=== PATIENT | male | born 1945 | race Caucasian/White ===

== ENCOUNTER 2021-12-16 06:58 | Day surgery (SDC) | payer OTHER, MEDICARE ==
[2021-12-09 10:45] VITALS: BMI 36.9
[2021-12-16] MEDS ORDERED: LIDOCAINE HCL/PF 1% SDV 5ML VIAL ONE (07:06)
[2021-12-16] MEDS ORDERED: PHENYLEPHRINE/KETOROLAC 4 ML VIAL IO ONE (07:06)
[2021-12-16] MEDS ORDERED: EPINEPHrine/PF 1 MG/1 ML (1:1,000) AMPULE ONE (07:06)
[2021-12-16] MEDS ORDERED: NEO/POLYMYX B SULF/DEXAMETH OPHTHALMIC 5ML BOTTLE ONE (07:07)
[2021-12-16] MEDS ORDERED: TETRACAINE 0.5% OPHTH SOLN 2 ML BOTTLE ONE (07:07)
[2021-12-16] MEDS ORDERED: CARBACHOL 0.01% INTRA-OCULAR 1.5 ML VIAL ONE (07:07)
[2021-12-16] MEDS ORDERED: ACETYLCHOLINE 1:100 INTRA-OCUL 20 MG/2 ML KIT ONE (07:07)
[2021-12-16] MEDS ORDERED: BSS (NA/CA/MG/K) BALANCED SALT SOLUTION OPHTH SOLN 15 ML BOTTLE ONE (07:07)
[2021-12-16] MEDS: PHENYLEPHRINE 2.5% OPHTH SOLN 15 ML BOTTLE ONE ×3 (07:50→08:00)
[2021-12-16] MEDS: TROPICAMIDE 1% OPHTH SOLN 15 ML BOTTLE ONE ×3 (07:50→08:00)
[2021-12-16] MEDS: CYCLOPENTOLATE 2% OPHTH SOLN 2 ML BOTTLE ONE ×3 (07:50→08:00)
[2021-12-16] MEDS: TOBRAMYCIN 0.3% OPHTH SOLN 5 ML BOTTLE ONE ×3 (07:50→08:00)
[2021-12-16] MEDS ORDERED: MIDAZOLAM HCL 2 MG/2 ML SINGLE DOSE VIAL ONE (08:40)
[2021-12-16 09:14] VITALS: TEMP 97.8
[2021-12-16 09:40] VITALS: BP 128/74; PULSE 60
== END 2021-12-16 09:41 | disposition home or self-care (01) ==
LOC: FASU 06:58
PROVIDERS: ATTEND Ophthalmology
PROC: 08RJ3JZ Replacement of Right Lens with Synthetic Substitute, Percutaneous Approach (ICD-10-PCS; principal; 2021-12-16 08:45)
DX: H26.8 Other specified cataract (principal)
CPT/HCPCS: 66984; V2632; J1097